=== PATIENT | female | born 1955 | race Caucasian/White ===

== ENCOUNTER 2017-08-04 17:48 | Inpatient (IN) ==
[2017-08-05] MEDS ORDERED: Celecoxib 200 MG CAPSULE PO PRN (12:57)
[2017-08-05] MEDS ORDERED: *HR* OxyCODONE Immed Rel 5 MG TABLET PO PRN ×2 (12:59→13:08)
[2017-08-05] MEDS: *HR* OxyCODONE Immed Rel 5 MG TABLET PO PRN ×2 (15:42→20:43)
[2017-08-05] MEDS: Gabapentin 400 MG CAPSULE PO SCH ×2 (15:42→20:43)
[2017-08-05] MEDS: *HR* Metformin 500 MG TABLET PO SCH (17:09)
[2017-08-05] MEDS: Aspirin Enteric Coated 325 MG Tablet PO SCH (20:43)
[2017-08-05] MEDS: (Aclidinium Bromide [Tudorza Pressair] 400 MCG) IH SCH (20:46)
[2017-08-05] MEDS: Melatonin 3 MG TABLET PO PRN (20:46)
[2017-08-06] MEDS: *HR* OxyCODONE Immed Rel 5 MG TABLET PO PRN ×4 (06:13→20:28)
[2017-08-06 06:56] LABS: Basophils % 0.5 %; Eosinophils # 0.3 K/mcL (0.0-0.6); Eosinophils % 4.1 %; Hematocrit 27.7 % (35.3-44.9); Hemoglobin 9.2 g/dL (11.5-15.4); Immature Granulocytes % 0.5 % (0-4); Lymphocytes # 1.4 K/mcL (0.6-4.6); Lymphocytes % 23.8 %; Mean Corpuscular HGB Conc 33.2 g/dL (31.6-35.5); Mean Corpuscular Volume 84.2 fL (83.0-100.0); Monocytes # 0.7 K/mcL (0.0-1.3); Monocytes % 11.4 %; Neutrophils # 3.6 K/mcL (1.6-8.9); Platelet Count 209 K/mcL (140-400); Red Blood Count 3.29 M/mcL (3.82-4.97); Red Cell Distribution Width 13.5 % (11.5-14.5); Segmented Neutrophils % 59.7 %
[2017-08-06 07:08] LABS: Prothrombin Time 10.7 Seconds (9.4-12.1)
[2017-08-06 07:11] LABS: Activated Partial Thrombo Time 25.2 Seconds (26.0-36.0)
[2017-08-06 07:18] LABS: BUN/Creatinine Ratio 21 (6-26); Blood Urea Nitrogen 15 mg/dL (7-20); Calcium 9.1 mg/dL (8.6-10.8); Carbon Dioxide 31 mEq/L (19-29); Chloride 99 mEq/L (98-109); Glucose 118 mg/dL (70-99); Osmolality,Calculated 286 (280-300); Potassium 4.1 mEq/L (3.5-4.5); Sodium 137 mEq/L (136-145); eGFR For African Americans > 60 (> 60); eGFR For Non-African Americans > 60 (> 60)
[2017-08-06] MEDS: Metoprolol XL (24 HR) Succ 50 MG TAB.ER.24H PO SCH (09:01)
[2017-08-06] MEDS: Aspirin Enteric Coated 325 MG Tablet PO SCH ×2 (09:01→20:28)
[2017-08-06] MEDS: Gabapentin 400 MG CAPSULE PO SCH ×3 (09:01→20:28)
[2017-08-06] MEDS: *HR* Metformin 500 MG TABLET PO SCH ×2 (09:01→17:15)
[2017-08-06] MEDS: (Aclidinium Bromide [Tudorza Pressair] 400 MCG) IH SCH ×2 (09:02→20:17)
--- NOTE | 2017-08-06 14:35 | Internal Med History&Physical ---
Date of Encounter: 08/06/17 Time of Encounter: 14:32 Assessment and Plan (1) Status post total left knee replacement Current visit: Yes Status: Acute Left knee currently appear swollen with ecchymosis. Patient complains of increased pain during range of motion which has limited her mobility on transferring out of bed. Patient's current pain medication has been effective. Patient being evaluated by physical therapy. We will continue with current plan of care (2) Diabetes mellitus Current visit: No Status: Chronic No acute issues. Patient's blood sugars have been slightly elevated on fingersticks. We will continue with SSI coverage and long-acting insulin. Continue to monitor for needs and titrating long-acting insulin. Qualifiers: Diabetes mellitus type: type 2 Diabetes mellitus complication status: with unspecified complications Diabetes mellitus care home insulin use: unspecified terminal press operator insulin use status Qualified Code(s): E11.8 - Type 2 diabetes mellitus with unspecified complications (3) COPD (chronic obstructive pulmonary disease) Current visit: No Status: Chronic No acute issues. Patient's lungs are clear. Patient denies any shortness of breath or productive cough. We will continue with current medications Qualifiers: COPD type: unspecified COPD Qualified Code(s): J44.9 - Chronic obstructive pulmonary disease, unspecified (4) Hypertension Current visit: No Status: Chronic Acute issues. Vital signs are stable. We will continue with current medication Qualifiers: Hypertension type: unspecified Qualified Code(s): I10 - Essential (primary ) hypertension Internal Medicine - H&P: HPI Admitted From: Intrahospital Transfer Plans for Post Hospital Care: Home History of present illness: Ms. Workman is a 61 year old female who was admitted for physical therapy after having a left total knee replacement. Patient had a total knee replacement on the left which currently remains swollen and was slight ecchymosis to bilateral sides. Patient states increased pain to the left knee with range of motion, which is limited due to edema and pain. Patient has history of osteoarthritis and has had several orthopedic surgeries to include her left shoulder and right knee over the past several years patient currently denies any other discomforts or shortness of breath. Patient also has history of CVA, COPD, DM, HTN and GERD. Past Med Surg Social Fam HX - Past Medical History Medical history: arthritis, cancer, COPD, CVA, diabetes, GERD, hyperlipidemia, hypertension, renal disease Psychiatric history: anxiety, bipolar, depression - Past Surgical History Surgical History: breast surgery, , cancer surgery, knee replacement, orthopedic, other, other - Social History Smoking Status: Never smoker Smokeless Tobacco Status: No Alcohol use: none Drug use: marijuana Occupational status: retired Current living situation: With Family - Family History Father Adopted: No Living Status: Hx Family Cardiac Disorders: Yes (HTN) Hx Family Endocrine Disorder: Yes (Diabetes) Hx Family Neurologic Disorders: Yes (cva) Mother Adopted: No Living Status: Still Living Hx Family Cardiac Disorders: Yes (HTN) Hx Family Respiratory Disorders: Yes Hx Family Cancer: Yes (Breast cancer) Hx Family GI Disorders: Yes Hx Family Endocrine Disorder: No Hx Family Neuromuscular Disorders: No Hx Family Neurologic Disorders: No Hx Family HEENT Disorders: No Hx Family Autoimmune Disorders: No Internal Medicine - H&P: Meds Metformin HCl [Glucophage] 1,000 mg PO BID 09/04/15 [History] Melatonin 5 mg PO HS PRN 01/24/16 [History] Simvastatin [Zocor] 10 mg PO HS 07/22/16 [History] Aspirin [Lo-Dose Aspirin EC] 81 mg PO DAILY 11/22/16 [History] Celecoxib [Celebrex] 200 mg PO BID PRN 11/22/16 [History] Lisinopril/Hydrochlorothiazide [Zestoretic 10-12.5 mg Tablet] 1 tab PO DAILY 03/03 [History] Ferrous Sulfate 325 mg PO BID #60 tablet. 11/23/16 [Rx] Aclidinium [place] [Tudorza Pressair] 400 mcg IH BID 08/02/17 [History] Albuterol Sulfate [Ventolin Hfa] 18 gm IH Q4HR PRN 08/02/17 [History] Metoprolol Succinate 50 mg PO DAILY 08/02/17 [History] Pantoprazole Sodium [Protonix] 40 mg PO BID 08/02/17 [History] Sertraline [Zoloft] 50 mg PO BID 08/02/17 [History] Buspirone HCl [Buspar] 10 mg PO BID 08/05/17 [History] Gabapentin [Neurontin] 800 mg PO TID 08/05/17 [History] 3 Allergy/AdvReac Type Severity Reaction Status Date / Time codeine AdvReac Gastrointestinal Verified 08/03/17 11:19 Upset All Systems PM: A 10-system review of systems was performed and is negative for pertinent findings except as documented above in the HPI. - Constitutional Constitutional: as per HPI - EENT Eyes: no change in vision, no discharge, no pain, no photophobia Nose, mouth and throat: no dysphagia, no nasal discharge, no neck pain, no sore throat - Cardiovascular Cardiovascular ROS IM: no chest pain, no diaphoresis, no dyspnea, no lightheadedness, no palpitations, no syncope - Respiratory Respiratory: no cough, no dyspnea, no wheezing, no excessive phlegm production - Gastrointestinal Gastrointestinal: no abdominal pain, no diarrhea, no hematemesis, no hematochezia, no melena, no nausea, no vomiting - Genitourinary Genitourinary: no change in urinary stream, no dysuria, no flank pain, no hematuria - Musculoskeletal Musculoskeletal ROS IM: as per HPI, joint swelling, stiffness - Integumentary Integumentary IM: as per HPI, no rash, no unusual bruising - Neurological Neurological ROS: no confusion, no convulsions, no focal weakness, no numbness, no tingling, no tremor(s) - Endocrine Endocrine IM: as per HPI - Constitutional Vitals: Temp Pulse Resp BP Pulse Ox 98.4 F 86 16 119/79 92 08/06/17 12:00 08/06/17 12:00 08/06/17 12:00 08/06/17 12:00 08/06/17 12:00 - Head Head exam: Present: atraumatic, normocephalic - Eye Eye exam: Present: PERRL, conjuntiva pink, sclera anicteric Pupils: Present: PERRL - Neck Neck exam general surgery: Present: supple, trachea midline. Absent: lymphadenopathy - Respiratory Respiratory exam: Present: CTAB. Absent: accessory muscle use, rales, rhonchi, wheezes - Cardiovascular Cardiovascular exam: Present: RRR, +S1, +S2. Absent: diastolic murmur, gallop, rubs, systolic murmur - Extremities Exam Extremities exam: Present: joint swelling, tenderness, warm, radial pulses palpable and symmetrical. Absent: calf tenderness, cyanotic, pedal edema Additional comments: Left knee appears swollen with areas of ecchymosis to bilateral sides. Limited range of motion due to pain and swelling. Dressing appears dry and intact - Neurological Exam Neurological exam: Present: CN II-XII intact, oriented X3, no focal deficits. Absent: pronater drift, facial droop, speech deficit - Skin Skin exam: Present: dry, intact Internal Med - H&P Results - Labs CBC & Chem 7: 08/06/17 06:18 08/06/17 06:18 Labs: Short CBC 08/06/17 Range/Units 06:18 WBC 6.1 (4.3-11.1) K/mcL Hgb 9.2 L (11.5-15.4) g/dL Hct 27.7 L (35.3-44.9) % Plt Count 209 (140-400) K/mcL Neutrophils # 3.6 (1.6-8.9) K/mcL BMP 08/06/17 06:18 Sodium 137 Potassium 4.1 Chloride 99 Carbon Dioxide 31 H BUN 15 Creatinine 0.71 Glucose 118 H Calcium 9.1
[2017-08-07] MEDS: *HR* OxyCODONE Immed Rel 5 MG TABLET PO PRN ×4 (06:25→21:30)
[2017-08-07] MEDS: Aspirin Enteric Coated 325 MG Tablet PO SCH ×2 (09:40→21:28)
[2017-08-07] MEDS: Gabapentin 400 MG CAPSULE PO SCH ×3 (09:40→21:28)
[2017-08-07] MEDS: *HR* Metformin 500 MG TABLET PO SCH ×2 (09:40→17:20)
[2017-08-07] MEDS: Metoprolol XL (24 HR) Succ 50 MG TAB.ER.24H PO SCH (09:41)
[2017-08-07] MEDS: (Aclidinium Bromide [Tudorza Pressair] 400 MCG) IH SCH ×2 (09:41→21:29)
--- NOTE | 2017-08-07 10:47 | Internal Med Progress Note ---
Date of Encounter: 08/07/17 Time of Encounter: 10:45 - Assessment and plan (1) Iron deficiency anemia Current Visit: No Status: Acute Assessment and plan: hgb stable. will monitor. Qualifiers: Iron deficiency anemia type: chronic blood loss Qualified Code(s): D50.0 - Iron deficiency anemia secondary to blood loss (chronic) (2) Diabetes mellitus type 2, noninsulin dependent Current Visit: No Status: Chronic Assessment and plan: continue PO meds. monitor FSBS (3) Status post total left knee replacement Current Visit: Yes Status: Acute Assessment and plan: pain controlled with oxycodone. monitor incision. continue therapy. - Time Spent With Patient less than 15 minutes - Subjective Interval history: pain controlled with medication. c/o constipation. states last BM prior to surgery 4 days ago. denies NVD, SOB, chest pain, fever or chils.. participating well with therapy. - Constitutional Vitals: Temp Pulse Resp BP Pulse Ox 98.2 F 82 16 149/85 93 08/07/17 07:38 08/07/17 07:38 08/07/17 07:38 08/07/17 07:38 08/07/17 07:38 General appearance: Present: A&O X 3, pleasant, no acute distress, answers questions appropriately - Head Head exam: Present: atraumatic, normocephalic - Eye Eye exam: Present: PERRL, conjuntiva pink, sclera anicteric Pupils: Present: PERRL - Neck Neck exam general surgery: Present: supple, trachea midline. Absent: lymphadenopathy - Respiratory Respiratory exam: Present: CTAB. Absent: accessory muscle use, rales, rhonchi, wheezes - Cardiovascular Cardiovascular exam: Present: RRR, +S1, +S2. Absent: diastolic murmur, gallop, rubs, systolic murmur - GI/Abdominal GI/Abdominal exam: Present: normal bowel sounds, soft, no peritoneal signs. Absent: distended, tenderness - Extremities Exam Extremities exam: Present: warm, radial pulses palpable and symmetrical. Absent : calf tenderness, cyanotic, pedal edema Additional comments: Left knee slight edema, drsg dry and intact. no signs of infection. - Neurological Exam Neurological exam: Present: CN II-XII intact, oriented X3, no focal deficits. Absent: pronater drift, facial droop, speech deficit - Skin Skin exam: Present: dry, intact Internal Medicine: Result - Labs CBC & Chem 7: 08/06/17 06:18 08/06/17 06:18 - ABG Interpretation ABG results: PT/INR, D-dimer PT 10.7 Seconds (9.4-12.1) 08/06/17 06:18 Consult Discharge Plan - Plan Referrals: Karina Villasenor, DINKEY BRAKEMAN [Primary Care Provider] -
[2017-08-07] MEDS: Melatonin 3 MG TABLET PO PRN (21:30)
[2017-08-08] MEDS: *HR* Enoxaparin 40 MG/0.4 ML SYRINGE SQ SCH (05:34)
[2017-08-08] MEDS: *HR* OxyCODONE Immed Rel 5 MG TABLET PO PRN ×4 (05:35→21:11)
[2017-08-08] MEDS: *HR* Metformin 500 MG TABLET PO SCH ×2 (09:41→16:22)
[2017-08-08] MEDS: Gabapentin 400 MG CAPSULE PO SCH ×3 (09:41→21:12)
[2017-08-08] MEDS: Metoprolol XL (24 HR) Succ 50 MG TAB.ER.24H PO SCH (09:41)
[2017-08-08] MEDS: Aspirin Enteric Coated 325 MG Tablet PO SCH ×2 (09:42→21:12)
[2017-08-08] MEDS: (Aclidinium Bromide [Tudorza Pressair] 400 MCG) IH SCH ×2 (09:42→21:00)
--- NOTE | 2017-08-08 12:38 | Internal Med Progress Note ---
Date of Encounter: 08/08/17 Time of Encounter: 12:35 - Assessment and plan (1) Status post total left knee replacement Current Visit: Yes Status: Acute Assessment and plan: Recent states pain controlled with oxycodone. We will continue to monitor incision. We will continue with continue therapy. (2) Diabetes mellitus Current Visit: No Status: Chronic Assessment and plan: No acute issues. Patient is on fingersticks with less than 150. Continue with current coverage Qualifiers: Diabetes mellitus type: type 2 Diabetes mellitus complication status: with unspecified complications Diabetes mellitus rat exterminator insulin use: unspecified rat exterminator insulin use status Qualified Code(s): E11.8 - Type 2 diabetes mellitus with unspecified complications (3) COPD (chronic obstructive pulmonary disease) Current Visit: No Status: Chronic Assessment and plan: No acute issues. Lungs are clear and respiratory effort is relaxed. Patient denies any productive cough or shortness of breath. We will continue with current medications Qualifiers: COPD type: unspecified COPD Qualified Code(s): J44.9 - Chronic obstructive pulmonary disease, unspecified (4) Hypertension Current Visit: No Status: Chronic Assessment and plan: Vital signs are stable. We will continue with current medications Qualifiers: Hypertension type: unspecified Qualified Code(s): I10 - Essential (primary ) hypertension - Subjective Interval history: Patient states that she feels her knee has been healing well. States minimal pain during physical therapy. Patient does complain of pain to bilateral wrist describes arthritic and states that she believes that it is from using a walker. Denies any shortness of breath - Constitutional Vitals: Temp Pulse Resp BP Pulse Ox 98.3 F 85 20 106/70 93 08/08/17 07:00 08/08/17 07:00 08/08/17 07:00 08/08/17 07:00 08/08/17 07:01 General appearance: Present: A&O X 3, pleasant, no acute distress, answers questions appropriately - Head Head exam: Present: atraumatic, normocephalic - Eye Eye exam: Present: PERRL, conjuntiva pink, sclera anicteric Pupils: Present: PERRL - Neck Neck exam general surgery: Present: supple, trachea midline. Absent: lymphadenopathy - Respiratory Respiratory exam: Present: CTAB. Absent: accessory muscle use, rales, rhonchi, wheezes - Cardiovascular Cardiovascular exam: Present: RRR, +S1, +S2. Absent: diastolic murmur, gallop, rubs, systolic murmur - GI/Abdominal GI/Abdominal exam: Present: normal bowel sounds, soft, no peritoneal signs. Absent: distended, tenderness - Extremities Exam Extremities exam: Present: warm, radial pulses palpable and symmetrical. Absent : calf tenderness, cyanotic, pedal edema - Neurological Exam Neurological exam: Present: CN II-XII intact, oriented X3, no focal deficits. Absent: pronater drift, facial droop, speech deficit - Skin Skin exam: Present: dry, intact Internal Medicine: Result - Labs CBC & Chem 7: 08/06/17 06:18 08/06/17 06:18 - ABG Interpretation ABG results: PT/INR, D-dimer PT 10.7 Seconds (9.4-12.1) 08/06/17 06:18 Consult Discharge Plan - Plan Referrals: Karina Villasenor, NIGHT NURSE [Primary Care Provider] -
--- NOTE | 2017-08-08 12:51 | Event Note ---
Date of Encounter: 08/08/17 Time of Encounter: 12:51 Patient's left leg has remained swollen. Patient was evaluated with a venous Doppler which showed negative for DVT. We will continue to monitor and continue to mobilize patient. Patient being prepared for discharge in the next few days
--- NOTE | 2017-08-08 13:47 | Discharge Summary ---
Date of Encounter: 08/09/17 Time of Encounter: 12:00 - Discharge Diagnosis (1) Status post total left knee replacement Priority: Primary Status: Acute - Discharge Medications Home Medications: Metformin HCl [Glucophage] 1,000 mg PO BID 09/04/15 [History] Melatonin 5 mg PO HS PRN 01/24/16 [History] Simvastatin [Zocor] 10 mg PO HS 07/22/16 [History] Aspirin [Lo-Dose Aspirin EC] 81 mg PO DAILY 11/22/16 [History] Celecoxib [Celebrex] 200 mg PO BID PRN 11/22/16 [History] Lisinopril/Hydrochlorothiazide [Zestoretic 10-12.5 mg Tablet] 1 tab PO DAILY 03/03 [History] Ferrous Sulfate 325 mg PO BID #60 tablet. 11/23/16 [Rx] Aclidinium [place] [Tudorza Pressair] 400 mcg IH BID 08/02/17 [History] Albuterol Sulfate [Ventolin Hfa] 18 gm IH Q4HR PRN 08/02/17 [History] Metoprolol Succinate 50 mg PO DAILY 08/02/17 [History] Pantoprazole Sodium [Protonix] 40 mg PO BID 08/02/17 [History] Sertraline [Zoloft] 50 mg PO BID 08/02/17 [History] Buspirone HCl [Buspar] 10 mg PO BID 08/05/17 [History] Gabapentin [Neurontin] 800 mg PO TID 08/05/17 [History] Allergies/Adverse Reactions: 3 Allergy/AdvReac Type Severity Reaction Status Date / Time codeine AdvReac Gastrointestinal Verified 08/03/17 11:19 Upset Procedures/tests Complete & Pending: Procedures Performed prior 72 hours Category Date Time Status Venous Ultrasound [EV venous imaging LE LT] Routine Y 08/07/17 15:47 Completed Date of admission: 08/05/17 12:55 Primary care physician: Karina Villasenor CNP Consults: 08/05/17 13:00 Consult to Occupational Therapy [CONS] Routine Comment: Evaluate, develop and implement POC Reason for Consult: s/p left knee replacement Consult to Physical Therapy [CONS] Routine Comment: Evaluate, develop and implement POC Reason for Consult: s/p left total knee Consult to Recreational Therapy [CONS] Routine Comment: Evaluate, develop and implement POC Discharging clinician: Stefan Roland Anticipated date of discharge: 08/09/17 - Patient Status Disposition: Home, Self-Care Condition: Good Functional capacity at discharge: uses cane/walker Overall status at discharge: patient is progressing back to baseline - Discharge Instructions Follow Up With: Karina Villasenor, [employer] [Primary Care Provider] - - Diet and Activity Activity: ambulate only with your walker Diet: diabetic diet Hospital course: Ms. Workman is a 61 year old female - Time Spent with Patient Total time spent providing and/or coordinating discharge services: Less than 30 minutes - Constitutional Vitals: Temp Pulse Resp BP Pulse Ox 98.3 F 85 20 106/70 93 08/08/17 07:00 08/08/17 07:00 08/08/17 07:00 08/08/17 07:00 08/08/17 07:01 General appearance: Present: A&O X 3, pleasant, no acute distress, answers questions appropriately - Head Head exam: Present: normal inspection - Neck Neck exam general surgery: Present: supple, trachea midline. Absent: lymphadenopathy - Respiratory Respiratory exam: Present: CTAB. Absent: accessory muscle use, rales, rhonchi, wheezes - Cardiovascular Cardiovascular exam: Present: RRR, +S1, +S2. Absent: diastolic murmur, gallop, rubs, systolic murmur - GI/Abdominal GI/Abdominal exam: Present: normal bowel sounds, soft, no peritoneal signs. Absent: distended, tenderness
[2017-08-08] MEDS: Melatonin 3 MG TABLET PO PRN (21:12)
[2017-08-09] MEDS: *HR* OxyCODONE Immed Rel 5 MG TABLET PO PRN ×2 (06:10→11:58)
[2017-08-09] MEDS: *HR* Enoxaparin 40 MG/0.4 ML SYRINGE SQ SCH (06:10)
[2017-08-09 07:34] VITALS: BP 113/62
[2017-08-09] MEDS: *HR* Metformin 500 MG TABLET PO SCH (08:25)
[2017-08-09] MEDS: Gabapentin 400 MG CAPSULE PO SCH (08:25)
[2017-08-09] MEDS: Metoprolol XL (24 HR) Succ 50 MG TAB.ER.24H PO SCH (08:26)
[2017-08-09] MEDS: Aspirin Enteric Coated 325 MG Tablet PO SCH (08:26)
[2017-08-09] MEDS: (Aclidinium Bromide [Tudorza Pressair] 400 MCG) IH SCH (08:34)
== END 2017-08-09 14:25 | disposition home or self-care (01) | DRG 561 ==
LOC: INPGRE 08-05 12:55
PROVIDERS: ADMIT Internal Medicine; ATTEND Internal Medicine

== ENCOUNTER 2017-09-08 16:14 | Inpatient (IN) ==
[2017-09-09] MEDS ORDERED: *HR* OxyCODONE/APAP 5/325 TABLET PO PRN (19:02)
[2017-09-09] MEDS ORDERED: Melatonin 3 MG TABLET PO PRN (19:03)
[2017-09-09] MEDS ORDERED: Celecoxib 200 MG CAPSULE PO PRN (19:03)
[2017-09-09] MEDS: (Aclidinium Bromide [Tudorza Pressair] 400 MCG) IH SCH (20:53)
[2017-09-09] MEDS: Gabapentin 400 MG CAPSULE PO SCH (20:53)
[2017-09-09] MEDS: *HR* Metformin 500 MG TABLET PO SCH (20:53)
[2017-09-09] MEDS: Sennosides/Docusate Sodium TABLET PO SCH (20:54)
[2017-09-09] MEDS: *HR* OxyCODONE/APAP 5/325 TABLET PO PRN (20:56)
[2017-09-10] MEDS: *HR* OxyCODONE/APAP 5/325 TABLET PO PRN ×4 (04:07→22:17)
[2017-09-10] MEDS: *HR* Enoxaparin 30 MG/0.3 ML SYRINGE SQ SCH ×2 (05:30→17:02)
[2017-09-10 05:43] LABS: Basophils % 0.5 %; Eosinophils # 0.3 K/mcL (0.0-0.6); Eosinophils % 5.4 %; Hemoglobin 8.1 g/dL (11.5-15.4); Immature Granulocytes % 0.4 % (0-4); Lymphocytes # 1.3 K/mcL (0.6-4.6); Lymphocytes % 23.9 %; Mean Corpuscular HGB Conc 32.4 g/dL (31.6-35.5); Mean Corpuscular Hemoglobin 27.5 pg (28.0-33.3); Mean Corpuscular Volume 84.7 fL (83.0-100.0); Mean Platelet Volume 9.3 fL (9.4-12.4); Monocytes # 0.6 K/mcL (0.0-1.3); Monocytes % 10.5 %; Neutrophils # 3.3 K/mcL (1.6-8.9); Platelet Count 282 K/mcL (140-400); Red Blood Count 2.95 M/mcL (3.82-4.97); Red Cell Distribution Width 13.7 % (11.5-14.5); Segmented Neutrophils % 59.3 %
[2017-09-10 05:45] LABS: INR 1.1; Prothrombin Time 11.9 Seconds (9.4-12.1)
[2017-09-10 05:47] LABS: Activated Partial Thrombo Time 26.9 Seconds (26.0-36.0)
[2017-09-10] MEDS: (Aclidinium Bromide [Tudorza Pressair] 400 MCG) IH SCH ×2 (08:16→20:28)
[2017-09-10] MEDS: Metoprolol XL (24 HR) Succ 50 MG TAB.ER.24H PO SCH (08:16)
[2017-09-10] MEDS: Vitamin B Complex/Vit C/Vit E 1 EACH TABLET PO SCH (08:16)
[2017-09-10] MEDS: Sennosides/Docusate Sodium TABLET PO SCH ×2 (08:16→20:19)
[2017-09-10] MEDS: *HR* Metformin 500 MG TABLET PO SCH ×2 (08:16→17:03)
[2017-09-10] MEDS: (Biotin [Biotin] 10,000 MCG) PO SCH (08:16)
[2017-09-10] MEDS: Gabapentin 400 MG CAPSULE PO SCH ×3 (08:16→20:18)
[2017-09-10 09:14] LABS: BUN/Creatinine Ratio 21 (6-26); Blood Urea Nitrogen 17 mg/dL (8-23); Calcium 8.6 mg/dL (8.6-10.3); Carbon Dioxide 32 mEq/L (23-29); Chloride 101 mEq/L (98-107); Glucose 137 mg/dL (70-105); Osmolality,Calculated 292 (280-300); Potassium 4.9 mEq/L (3.5-5.1); Sodium 139 mEq/L (136-145); eGFR For African Americans > 60 (> 60); eGFR For Non-African Americans > 60 (> 60)
--- NOTE | 2017-09-10 13:46 | Internal Med History&Physical ---
Date of Encounter: 09/10/17 Time of Encounter: 13:43 Assessment and Plan (1) Status post lumbar spine surgery for decompression of spinal cord Current visit: Yes Status: Acute PT/OT eval and treat. will follow progress. continue percocet for pain . f/ u with surgeon as scheduled. (2) Postoperative anemia Current visit: Yes Status: Acute continue ferrous sulfate BID, repeat CBC in am. (3) Diabetes mellitus Current visit: No Status: Chronic monitor FSBS, will continue and adjust meds as necessary. Qualifiers: Diabetes mellitus type: type 2 Diabetes mellitus complication status: with unspecified complications Diabetes mellitus intermediate insulin use: unspecified terminal computer operator insulin use status Qualified Code(s): E11.8 - Type 2 diabetes mellitus with unspecified complications (4) Hypertension Current visit: No Status: Chronic stable. continue meds. monitor BP. Qualifiers: Hypertension type: essential hypertension Qualified Code(s): I10 - Essential (primary) hypertension Internal Medicine - H&P: HPI Admitted From: Hospital to Hospital Transfer Plans for Post Hospital Care: Home History of present illness: Ms. Workman is a 61 year old female admitted to rehab /sp lumbar decompression. PMHX: HTN, COPD, Hyperlipidemia, depression, DM. percocet effective for pain. states pain is more down right thigh, radiates down through buttocks on right. denies fever, chills, NVD, SOB or chest pain. Past Med Surg Social Fam HX - Past Medical History Medical history: arthritis, cancer, COPD, CVA, diabetes, GERD, hyperlipidemia, hypertension, renal disease Psychiatric history: anxiety, bipolar, depression - Past Surgical History Surgical History: breast surgery, , cancer surgery, knee replacement, orthopedic, other, other - Social History Smoking Status: Never smoker Smokeless Tobacco Status: No Alcohol use: none Drug use: marijuana - Family History Father Adopted: No Living Status: Hx Family Cardiac Disorders: Yes (HTN) Hx Family Endocrine Disorder: Yes (Diabetes) Hx Family Neurologic Disorders: Yes (cva) Mother Adopted: No Living Status: Still Living Hx Family Cardiac Disorders: Yes (HTN) Hx Family Respiratory Disorders: Yes Hx Family Cancer: Yes (Breast cancer) Hx Family GI Disorders: Yes Hx Family Endocrine Disorder: No Hx Family Neuromuscular Disorders: No Hx Family Neurologic Disorders: No Hx Family HEENT Disorders: No Hx Family Autoimmune Disorders: No Internal Medicine - H&P: Meds Metformin HCl [Glucophage] 1,000 mg PO BID 09/04/15 [History] Melatonin 5 mg PO HS PRN 01/24/16 [History] Simvastatin [Zocor] 10 mg PO HS 07/22/16 [History] Aspirin [Lo-Dose Aspirin EC] 81 mg PO DAILY 11/22/16 [History] Celecoxib [Celebrex] 200 mg PO BID PRN 11/22/16 [History] Lisinopril/Hydrochlorothiazide [Zestoretic 10-12.5 mg Tablet] 1 tab PO DAILY 03/03 [History] Ferrous Sulfate 325 mg PO BID #60 tablet. 11/23/16 [Rx] Aclidinium [place] [Tudorza Pressair] 400 mcg IH BID 08/02/17 [History] Albuterol Sulfate [Ventolin Hfa] 18 gm IH Q4HR PRN 08/02/17 [History] Metoprolol Succinate 50 mg PO DAILY 08/02/17 [History] Pantoprazole Sodium [Protonix] 40 mg PO BID 08/02/17 [History] Sertraline [Zoloft] 50 mg PO BID 08/02/17 [History] Buspirone HCl [Buspar] 10 mg PO BID 08/05/17 [History] Gabapentin [Neurontin] 800 mg PO TID 08/05/17 [History] Biotin 10,000 mcg PO DAILY 09/09/17 [History] Cyclobenzaprine [Flexeril] 10 mg PO TID PRN 09/09/17 [History] Vitamin B Complex [B Complex] 1 each PO DAILY 09/09/17 [History] 3 Allergy/AdvReac Type Severity Reaction Status Date / Time codeine AdvReac Gastrointestinal Verified 08/03/17 11:19 Upset All Systems PM: A 10-system review of systems was performed and is negative for pertinent findings except as documented above in the HPI. - Constitutional Constitutional: no chills, no fever(s), no night sweats - EENT Eyes: no change in vision, no discharge, no pain, no photophobia Ears: no ear discharge, no ear pain, no tinnitus Nose, mouth and throat: no dysphagia, no nasal discharge, no neck pain, no sore throat - Cardiovascular Cardiovascular ROS IM: no chest pain, no diaphoresis, no dyspnea, no lightheadedness, no palpitations, no syncope - Respiratory Respiratory: no cough, no dyspnea, no wheezing, no excessive phlegm production - Gastrointestinal Gastrointestinal: no abdominal pain, no diarrhea, no hematemesis, no hematochezia, no melena, no nausea, no vomiting - Genitourinary Genitourinary: no change in urinary stream, no dysuria, no flank pain, no hematuria - Musculoskeletal Musculoskeletal ROS IM: no numbness, no tingling - Integumentary Integumentary IM: no rash, no unusual bruising - Neurological Neurological ROS: no confusion, no convulsions, no focal weakness, no numbness, no tingling, no tremor(s) - Hematologic/Lymphatic Hematologic/Lymphatic: no easy bruising - Constitutional Vitals: Temp Pulse Resp BP Pulse Ox 98.0 F 92 18 129/89 92 09/10/17 12:00 09/10/17 12:00 09/10/17 12:00 09/10/17 12:00 09/10/17 12:00 General appearance: Present: A&O X 3, answers questions appropriately - Head Head exam: Present: atraumatic, normocephalic - Eye Eye exam: Present: PERRL, conjuntiva pink, sclera anicteric Pupils: Present: PERRL - Neck Neck exam general surgery: Present: supple, trachea midline. Absent: lymphadenopathy - Respiratory Respiratory exam: Present: CTAB. Absent: accessory muscle use, rales, rhonchi, wheezes - Cardiovascular Cardiovascular exam: Present: RRR, +S1, +S2. Absent: diastolic murmur, gallop, rubs, systolic murmur - GI/Abdominal GI/Abdominal exam: Present: normal bowel sounds, soft, no peritoneal signs. Absent: distended, tenderness - Extremities Exam Extremities exam: Present: warm, radial pulses palpable and symmetrical. Absent : calf tenderness, cyanotic, pedal edema - Neurological Exam Neurological exam: Present: CN II-XII intact, oriented X3, no focal deficits. Absent: pronater drift, facial droop, speech deficit - Skin Skin exam: Present: dry, intact Internal Med - H&P Results - Labs CBC & Chem 7: 09/10/17 05:25 09/10/17 05:25 Labs: Short CBC 09/10/17 Range/Units 05:25 WBC 5.5 (4.3-11.1) K/mcL Hgb 8.1 L (11.5-15.4) g/dL Hct 25.0 L (35.3-44.9) % Plt Count 282 (140-400) K/mcL Neutrophils # 3.3 (1.6-8.9) K/mcL BMP 09/10/17 05:25 Sodium 139 Potassium 4.9 Chloride 101 Carbon Dioxide 32 H BUN 17 Creatinine 0.80 Glucose 137 H Calcium 8.6
[2017-09-11 05:15] LABS: Basophils % 0.2 %; Eosinophils # 0.3 K/mcL (0.0-0.6); Eosinophils % 4.6 %; Hematocrit 24.5 % (35.3-44.9); Immature Granulocytes % 1.3 % (0-4); Lymphocytes # 1.3 K/mcL (0.6-4.6); Lymphocytes % 20.8 %; Mean Corpuscular HGB Conc 32.7 g/dL (31.6-35.5); Mean Corpuscular Hemoglobin 27.4 pg (28.0-33.3); Mean Corpuscular Volume 83.9 fL (83.0-100.0); Mean Platelet Volume 9.1 fL (9.4-12.4); Monocytes # 0.5 K/mcL (0.0-1.3); Monocytes % 7.5 %; Neutrophils # 4.1 K/mcL (1.6-8.9); Platelet Count 302 K/mcL (140-400); Red Blood Count 2.92 M/mcL (3.82-4.97); Red Cell Distribution Width 13.9 % (11.5-14.5); Segmented Neutrophils % 65.6 %
[2017-09-11] MEDS: *HR* Enoxaparin 30 MG/0.3 ML SYRINGE SQ SCH ×2 (05:19→17:40)
[2017-09-11] MEDS: *HR* OxyCODONE/APAP 5/325 TABLET PO PRN ×2 (05:23→12:12)
[2017-09-11] MEDS: Gabapentin 400 MG CAPSULE PO SCH ×3 (08:07→21:34)
[2017-09-11] MEDS: Metoprolol XL (24 HR) Succ 50 MG TAB.ER.24H PO SCH (08:07)
[2017-09-11] MEDS: *HR* Metformin 500 MG TABLET PO SCH ×2 (08:07→17:40)
[2017-09-11] MEDS: Vitamin B Complex/Vit C/Vit E 1 EACH TABLET PO SCH (08:07)
[2017-09-11] MEDS: Sennosides/Docusate Sodium TABLET PO SCH ×2 (08:08→21:36)
[2017-09-11] MEDS: (Biotin [Biotin] 10,000 MCG) PO SCH (08:08)
[2017-09-11] MEDS: (Aclidinium Bromide [Tudorza Pressair] 400 MCG) IH SCH ×2 (08:08→21:38)
--- NOTE | 2017-09-11 15:22 | Internal Med Progress Note ---
Date of Encounter: 09/11/17 Time of Encounter: 15:20 - Assessment and plan (1) Status post lumbar spine surgery for decompression of spinal cord Current Visit: Yes Status: Acute Assessment and plan: No acute issues. Lumbar surgical incision appears intact and healing well. No acute neurological deficits noted on exam. Patient is progressing well with physical therapy. Patient denies any discomforts to her lumbar surgical site (2) Status post total left knee replacement Current Visit: Yes Status: Acute Assessment and plan: Patient complains of moderate pain to her left knee which has been present since a recent fall prior to her current admission. Patient has had follow-up with orthopedics to evaluate anemia prior to admission to this facility with no changes ordered and follow-up treatment. Left knee remains painful drained ambulation with patient having difficulty maintaining physical therapy. Will increase patient's current pain medications. Patient being prepared for upcoming discharge and given recommendations to follow up with orthopedics for further evaluation. Left knee shows no signs of infection, but does remain slightly swollen. (3) COPD (chronic obstructive pulmonary disease) Current Visit: No Status: Chronic Assessment and plan: Lungs are clear. Patient denies any dyspnea or productive cough. We will continue his current medications and bronchodilators. Qualifiers: COPD type: unspecified COPD Qualified Code(s): J44.9 - Chronic obstructive pulmonary disease, unspecified (4) Diabetes mellitus Current Visit: No Status: Chronic Assessment and plan: No acute issues. Glucose has been fairly well maintained and will continue with fingersticks and SSI coverage. We will continue with current medication regimen. Qualifiers: Diabetes mellitus type: type 2 Diabetes mellitus complication status: with unspecified complications Diabetes mellitus nursing home insulin use: unspecified terminal worker insulin use status Qualified Code(s): E11.8 - Type 2 diabetes mellitus with unspecified complications (5) Hypertension Current Visit: No Status: Chronic Assessment and plan: Vital signs stable. We will continue with current medications. Qualifiers: Hypertension type: essential hypertension Qualified Code(s): I10 - Essential (primary) hypertension - Time Spent With Patient less than 15 minutes - Subjective Interval history: Patient with complaints of left knee pain, which she states has been present since a fall prior to her current admission. Patient has had a recent left knee replacement approximately 2 months ago. Patient denies any discomforts to her lower back. Patient denies any acute neurological deficits. - Constitutional Vitals: Temp Pulse Resp BP Pulse Ox 97.2 F L 103 18 106/67 93 09/11/17 08:00 09/11/17 08:00 09/11/17 08:00 09/11/17 08:00 09/11/17 08:00 General appearance: Present: A&O X 3, answers questions appropriately - Head Head exam: Present: atraumatic, normocephalic - Eye Eye exam: Present: PERRL, conjuntiva pink, sclera anicteric Pupils: Present: PERRL - Neck Neck exam general surgery: Present: supple, trachea midline. Absent: lymphadenopathy - Respiratory Respiratory exam: Present: CTAB. Absent: accessory muscle use, rales, rhonchi, wheezes - Cardiovascular Cardiovascular exam: Present: RRR, +S1, +S2. Absent: diastolic murmur, gallop, rubs, systolic murmur - GI/Abdominal GI/Abdominal exam: Present: normal bowel sounds, soft, no peritoneal signs. Absent: distended, tenderness - Extremities Exam Extremities exam: Present: warm, radial pulses palpable and symmetrical. Absent : calf tenderness, cyanotic, pedal edema Additional comments: Left knee with slight edema. No erythema. Surgical incision appears intact and healthy. - Neurological Exam Neurological exam: Present: CN II-XII intact, oriented X3, no focal deficits. Absent: pronater drift, facial droop, speech deficit Additional comments: Lumbar surgical incision is dry and intact. No neurological deficits noted on exam. - Skin Skin exam: Present: dry, intact Internal Medicine: Result - Labs CBC & Chem 7: 09/11/17 05:03 09/10/17 05:25 Labs: Short CBC 09/11/17 Range/Units 05:03 WBC 6.3 (4.3-11.1) K/mcL Hgb 8.0 L (11.5-15.4) g/dL Hct 24.5 L (35.3-44.9) % Plt Count 302 (140-400) K/mcL Neutrophils # 4.1 (1.6-8.9) K/mcL - ABG Interpretation ABG results: PT/INR, D-dimer PT 11.9 Seconds (9.4-12.1) 09/10/17 05:25 Consult Discharge Plan - Plan Referrals: Karina Villasenor, [employer] MANAGER [Primary Care Provider] -
[2017-09-11] MEDS: *HR* OxyCODONE/APAP 10/325 TABLET PO PRN (21:35)
[2017-09-12 05:10] LABS: Basophils % 0.2 %; Eosinophils # 0.3 K/mcL (0.0-0.6); Eosinophils % 5.3 %; Hematocrit 25.4 % (35.3-44.9); Hemoglobin 8.3 g/dL (11.5-15.4); Immature Granulocytes % 0.9 % (0-4); Lymphocytes # 1.6 K/mcL (0.6-4.6); Lymphocytes % 27.4 %; Mean Corpuscular HGB Conc 32.7 g/dL (31.6-35.5); Mean Corpuscular Hemoglobin 27.5 pg (28.0-33.3); Mean Corpuscular Volume 84.1 fL (83.0-100.0); Mean Platelet Volume 9.2 fL (9.4-12.4); Monocytes # 0.5 K/mcL (0.0-1.3); Monocytes % 9.3 %; Neutrophils # 3.3 K/mcL (1.6-8.9); Platelet Count 312 K/mcL (140-400); Red Blood Count 3.02 M/mcL (3.82-4.97); Red Cell Distribution Width 13.9 % (11.5-14.5); Segmented Neutrophils % 56.9 %
[2017-09-12 05:27] LABS: BUN/Creatinine Ratio 21 (6-26); Blood Urea Nitrogen 17 mg/dL (8-23); Calcium 8.8 mg/dL (8.6-10.3); Carbon Dioxide 30 mEq/L (23-29); Chloride 101 mEq/L (98-107); Glucose 107 mg/dL (70-105); Osmolality,Calculated 290 (280-300); Potassium 4.3 mEq/L (3.5-5.1); Sodium 139 mEq/L (136-145); eGFR For African Americans > 60 (> 60); eGFR For Non-African Americans > 60 (> 60)
[2017-09-12] MEDS: *HR* OxyCODONE/APAP 5/325 TABLET PO PRN (06:04)
[2017-09-12] MEDS: *HR* Enoxaparin 30 MG/0.3 ML SYRINGE SQ SCH (06:04)
[2017-09-12 07:31] VITALS: BP 121/66
[2017-09-12 08:44] LABS: C-Reactive Protein 50 mg/L (Less than 10)
[2017-09-12] MEDS: *HR* Metformin 500 MG TABLET PO SCH (09:19)
[2017-09-12] MEDS: Sennosides/Docusate Sodium TABLET PO SCH (09:19)
[2017-09-12] MEDS: Metoprolol XL (24 HR) Succ 50 MG TAB.ER.24H PO SCH (09:19)
[2017-09-12] MEDS: (Biotin [Biotin] 10,000 MCG) PO SCH (09:20)
[2017-09-12] MEDS: Gabapentin 400 MG CAPSULE PO SCH (09:20)
[2017-09-12] MEDS: Vitamin B Complex/Vit C/Vit E 1 EACH TABLET PO SCH (09:20)
[2017-09-12] MEDS: (Aclidinium Bromide [Tudorza Pressair] 400 MCG) IH SCH (09:20)
[2017-09-12] MEDS: *HR* OxyCODONE/APAP 10/325 TABLET PO PRN (10:11)
--- NOTE | 2017-09-12 11:52 | Discharge Summary ---
Date of Encounter: 09/12/17 Time of Encounter: 11:49 - Discharge Diagnosis (1) Status post lumbar spine surgery for decompression of spinal cord Priority: Primary Status: Acute Comments: No acute issues. Surgical incision appears healthy and intact. No acute neurological deficits noted during stay in facility. Patient's pain to surgical site was well controlled with oral medications. (2) Status post total left knee replacement Priority: Secondary Status: Acute Comments: Patient continues to have moderate pain to left knee. Patient surgery occurred approximately 2 months ago and she reinjured the knee during a fall prior to this admission. Patient states that she has had follow-up with orthopedics prior to admission at facility and has a planned follow-up in approximately 4 weeks. (3) COPD (chronic obstructive pulmonary disease) Priority: Secondary Status: Chronic Comments: No acute issues. Patient denies any shortness of breath or productive cough. We will continue his current home medications. Qualifiers: COPD type: unspecified COPD Qualified Code(s): J44.9 - Chronic obstructive pulmonary disease, unspecified (4) Diabetes mellitus Priority: Secondary Status: Chronic Comments: No acute issues. Patient's glucose has been fairly well-controlled with current medications ordered. Patient to continue with current medications at home Qualifiers: Diabetes mellitus type: type 2 Diabetes mellitus complication status: with unspecified complications Diabetes mellitus [facility] insulin use: unspecified terminal operations manager insulin use status Qualified Code(s): E11.8 - Type 2 diabetes mellitus with unspecified complications (5) Hypertension Priority: Secondary Status: Chronic Comments: Vital signs had remained stable during hospital stay. Patient to continue with home medications Qualifiers: Hypertension type: essential hypertension Qualified Code(s): I10 - Essential (primary) hypertension - Discharge Medications Home Medications: Metformin HCl [Glucophage] 1,000 mg PO BID 09/04/15 [History] Melatonin 5 mg PO HS PRN 01/24/16 [History] Simvastatin [Zocor] 10 mg PO HS 07/22/16 [History] Aspirin [Lo-Dose Aspirin EC] 81 mg PO DAILY 11/22/16 [History] Celecoxib [Celebrex] 200 mg PO BID PRN 11/22/16 [History] Lisinopril/Hydrochlorothiazide [Zestoretic 10-12.5 mg Tablet] 1 tab PO DAILY 03/03 [History] Ferrous Sulfate 325 mg PO BID #60 tablet. 11/23/16 [Rx] Aclidinium [place] [Tudorza Pressair] 400 mcg IH BID 08/02/17 [History] Albuterol Sulfate [Ventolin Hfa] 18 gm IH Q4HR PRN 08/02/17 [History] Metoprolol Succinate 50 mg PO DAILY 08/02/17 [History] Pantoprazole Sodium [Protonix] 40 mg PO BID 08/02/17 [History] Sertraline [Zoloft] 50 mg PO BID 08/02/17 [History] Buspirone HCl [Buspar] 10 mg PO BID 08/05/17 [History] Gabapentin [Neurontin] 800 mg PO TID 08/05/17 [History] Biotin 10,000 mcg PO DAILY 09/09/17 [History] Cyclobenzaprine [Flexeril] 10 mg PO TID PRN 09/09/17 [History] Vitamin B Complex [B Complex] 1 each PO DAILY 09/09/17 [History] Allergies/Adverse Reactions: 3 Allergy/AdvReac Type Severity Reaction Status Date / Time codeine AdvReac Gastrointestinal Verified 08/03/17 11:19 Upset Date of admission: 09/09/17 17:21 Primary care physician: Karina Villasenor CNP Consults: 09/09/17 18:46 Consult to Occupational Therapy [CONS] Routine Comment: Evaluate, develop and implement POC Reason for Consult: treat and eval Consult to Physical Medicine/Rehab [CONS] Routine Reason for Consult: s/p spinal fusion and fixation Call Completed: No Consult to Physical Therapy [CONS] Routine Comment: Evaluate, develop and implement POC Reason for Consult: treat and eval Consult to Recreational Therapy [CONS] Routine Comment: Evaluate, develop and implement POC Consult to Transport Engineer [CONS] Routine Reason for SW Consult: d/c planning Discharging clinician: Stefan Roland Anticipated date of discharge: 09/12/17 - Patient Status Disposition: Home, Self-Care Condition: Good Functional capacity at discharge: uses cane/walker Overall status at discharge: patient is progressing back to baseline - Discharge Instructions Follow Up With: Karnia Villasenor CNP [Primary Care Provider] - - Diet and Activity Activity: ambulate only with your walker, as per physical therapy, increase activity as tolerated Diet: diabetic diet Hospital course: Ms. Workman is a 61 year old female who was admitted to this facility for physical therapy after having a lumbar laminectomy. Patient also has had a recent left total knee replacement in the prior 2 months. Patient progressed well with physical therapy, although she continued to have moderate pain to her left knee. Recent lumbar incision appears to be healing well and patient denied any of her previous radicular symptoms. Patient's left knee remains slightly swollen but no erythema or signs of infection. He had experienced a fall prior to admission for her laminectomy, stating that she had injured her knee at that time. Patient has continued follow-up with orthopedic surgeon for reevaluation of left knee. Patient experienced no other acute issues during her stay at this facility. Time spent discussing smoking cessation with patient: 3 to 10 minutes - Time Spent with Patient Total time spent providing and/or coordinating discharge services: Less than 30 minutes - Constitutional Vitals: Temp Pulse Resp BP Pulse Ox 97.9 F 78 16 121/66 92 09/12/17 06:00 09/12/17 06:00 09/12/17 06:00 09/12/17 06:00 09/12/17 06:00 General appearance: Present: A&O X 3, pleasant, no acute distress, answers questions appropriately - Head Head exam: Present: atraumatic, normocephalic - Eye Eye exam: Present: PERRL, conjuntiva pink, sclera anicteric Pupils: Present: PERRL - Neck Neck exam general surgery: Present: supple, trachea midline. Absent: lymphadenopathy - Respiratory Respiratory exam: Present: CTAB. Absent: accessory muscle use, rales, rhonchi, wheezes - Cardiovascular Cardiovascular exam: Present: RRR, +S1, +S2. Absent: diastolic murmur, gallop, rubs, systolic murmur - GI/Abdominal GI/Abdominal exam: Present: normal bowel sounds, soft, no peritoneal signs. Absent: distended, tenderness - Extremities Exam Extremities exam: Present: warm, radial pulses palpable and symmetrical. Absent : calf tenderness, cyanotic, pedal edema Additional comments: Left knee remains slightly swollen. No signs of infection or erythema. - Neurological Exam Neurological exam: Present: CN II-XII intact, oriented X3, no focal deficits. Absent: pronater drift, facial droop, speech deficit Additional comments: Lumbar laminectomy incision remains healthy and intact. No focal neurological deficits noted on exam. - Skin Skin exam: Present: dry, intact
[2017-09-14] MEDS ORDERED: Aspirin Enteric Coated 81 MG Tablet PO SCH (09:00)
== END 2017-09-12 14:40 | disposition home or self-care (01) | DRG 561 ==
LOC: INPGRE 09-09 17:21
PROVIDERS: ADMIT Internal Medicine; ATTEND Internal Medicine